=== PATIENT | male | born 1940 | race Caucasian/White ===

== ENCOUNTER 2023-08-01 14:07 | Emergency (ER) | payer MEDICARE ==
[2023-08-01] MEDS ORDERED: Dexamethasone 10 MG/ML VIAL ONE (16:15)
== END 2023-08-01 16:29 | disposition home or self-care (01) ==
LOC: MADERS 14:07
DX: U07.1 COVID-19 (principal); J06.9 Acute upper respiratory infection, unspecified; K21.9 Gastro-esophageal reflux disease without esophagitis; E78.00 Pure hypercholesterolemia, unspecified
CPT/HCPCS: 71046; 87081; 87430; 87635; 87804; 96372; J1100

== ENCOUNTER 2025-06-27 19:21 | Emergency (ER) | payer MEDICARE ==
[2025-06-27] MEDS ORDERED: Dexamethasone 10 MG/ML VIAL ONE (20:15)
== END 2025-06-27 20:23 | disposition home or self-care (01) ==
LOC: MADERS 19:21
DX: J06.9 Acute upper respiratory infection, unspecified (principal); I48.91 Unspecified atrial fibrillation; I10 Essential (primary) hypertension; E78.00 Pure hypercholesterolemia, unspecified; J45.909 Unspecified asthma, uncomplicated; Z79.51 Long term (current) use of inhaled steroids; Z79.899 Other long term (current) drug therapy
CPT/HCPCS: 87426; 96372; 99283; J1100